=== PATIENT | male | born 1965 | race Caucasian/White ===

== ENCOUNTER → 2017-09-03 | Outpatient (CLI) | payer MEDICARE, MEDICAID ==
[~2017-09-03] MED LIST: ADVAIR 250-501 EACH PO; ATIVAN1 MG PO; B COMPLEX-VITA1 EACH; CLOMIPRAMINE HC25 M1 PO; CLONAZEPAM 1 MG1 M1 PO; DICLOXACILLIN250 M2 PO; FISH OIL 1,0001 EAC5 PO; FLOMAX PO; KEFLEX500 MG; LOVASTAT40 PO; MULTIVITAMINS1 EAC7 PO; PRENATAL PO; PROAIR HFA8.5 GM; PROPRANOLOL 4040 MG PO; REVIA 50 MG TAB50 M1; RISPERDAL 3 MG T3 M1 PO; RISPERDAL2 MG PO; SYNTHROID300 MCG PO; TRAMADOL 50 MG50 MG PO; VITAMIN B-1100 M1 PO; VITAMIN B-12100 MC1 PO; ZOLOFT100 MG PO; ZYRTEC10 M2 PO
== END ==
LOC: M.ULTRA 12:57
DX: I12.9 Hypertensive chronic kidney disease with stage 1 through stage 4 chronic kidney disease, or unspecified chronic kidney disease (principal); N18.9 Chronic kidney disease, unspecified; E66.3 Overweight; E03.9 Hypothyroidism, unspecified; E78.5 Hyperlipidemia, unspecified